=== PATIENT | female | born 1995 | race African-American/Black ===

== ENCOUNTER 2016-12-01 17:50 | Emergency (ER) | payer SELFPAY ==
[~2016-12-01] VITALS: Ht 167.6 cm; Wt 75.0 kg
[2016-12-01 17:52] VITALS: BP 144/89; PULSE 112; RESP 18; TEMP 98; O2SAT 99
--- NOTE | 2016-12-01 18:09 | PD ---
Physical Exam Date Seen by Provider: Dec 01, 2016 Time Seen by Provider: 18:07 Narrative 21- year old female reports that her period is 12 days late. The patient then went to the report center and was told that her test was inconclusive. The patient started bleeding yesterday and presents to have a test. She also reports that she is having abdominal pain. She is awaiting bed placement. Urine HCG and UA ordered in triage. Data Data Last Documented VS Vital Signs Date Time Temp Pulse Resp B/P (MAP) Pulse Ox O2 Delivery O2 Flow Rate FiO2 12/01/16 17:52 98.0 112 18 144/89 (107) 99 MDM Medical Record Reviewed: Yes Supervised Visit with JESS: No Condition: Stable Neeta Siddiqui Dec 01, 2016 18:09
== END 2016-12-01 18:45 | disposition left against medical advice (07) ==
LOC: NED 17:50
DX: R10.9 Unspecified abdominal pain (principal); Z53.21 Procedure and treatment not carried out due to patient leaving prior to being seen by health care provider
CPT/HCPCS: 99281

== ENCOUNTER 2017-04-12 10:56 | Emergency (ER) | payer BC ==
[~2017-04-12] VITALS: Ht 167.6 cm; Wt 75.0 kg
[2017-04-12 10:58] VITALS: BP 127/99; PULSE 79; RESP 18; TEMP 98.7; O2SAT 100
[2017-04-12 11:34] LABS: BACTERIA, URINE OCC /hpf; BILIRUBIN, URINE NEG (NEG); BLOOD, URINE TRACE (NEG); GLUCOSE,URINE NEG (NEG); KETONE, URINE NEG (NEG); MUCUS URINE FEW /lpf (OCC); NITRITE,URINE NEG (NEG); PH, URINE 6.5 (5.0-8.5); SQUAMOUS EPITHELIAL CELL URINE 1 /hpf (0-5); URINE COLOR YELLOW (YELLW/STRAW); URINE LEUKOCYTE ESTERASE SMALL (NEG)
--- NOTE | 2017-04-12 11:36 | PD ---
HPI Chief Complaint: Abdominal Pain Time Seen by Provider: 11:35 Travel History International Travel<30 days: No Contact w/Intl Traveler<30days: No Traveled to known affect area: No History of Present Illness HPI 21-year-old female presents to emergency Department with complaint of intermittent left upper quadrant abdominal pain for the past few weeks. At worst the pain is an 8/10. At best, which she says now, it just feels like a pressure. Denies fevers, vomiting, constipation, diarrhea, dysuria. Currently on menses. No known aggravating or relieving factors. Has taken ibuprofen for symptom management. Denies history of abdominal surgeries. No known allergies. No significant past medical history. No primary care provider. Has no other medical complaints. No other modifying factors or associated signs and symptoms. PFSH Past Medical History ?: Unknown Social History Tobacco Use: No Allergies-Medications (Allergen,Severity, Reaction): Coded Allergies: No Known Allergies (Unverified , 04/12/17) Reported Meds & Prescriptions Reported Meds & Active Scripts Active No Active Prescriptions or Reported Medications Review of Systems Except as stated in HPI: all other systems reviewed are Neg Physical Exam Narrative GENERAL: Well-nourished, well-developed black female patient, in no acute distress; afebrile SKIN: Warm and dry. HEAD: Atraumatic. Normocephalic. EYES: Pupils equal and round. No scleral icterus. No injection or drainage. ENT: Mucosa pink and moist. Airway patent. NECK: Trachea midline. CARDIOVASCULAR: Regular rate and rhythm. No murmur appreciated. RESPIRATORY: No accessory muscle use. Clear to auscultation. Breath sounds equal bilaterally. GASTROINTESTINAL: Abdomen soft, tenderness on palpation to left upper quadrant, nondistended. Hepatic and splenic margins not palpable. Bowel sounds are active 4 quadrants. Nonrigid. No rebound tenderness. No guarding. BACK: No CVA tenderness. MUSCULOSKELETAL: No obvious deformities. No clubbing. No cyanosis. No edema. NEUROLOGICAL: Awake and alert. Oriented 3. No obvious cranial nerve deficits. Motor grossly within normal limits. Normal speech. PSYCHIATRIC: Appropriate mood and affect; insight and judgment normal. Data Data Last Documented VS Vital Signs Date Time Temp Pulse Resp B/P (MAP) Pulse Ox O2 Delivery O2 Flow Rate FiO2 04/12/17 10:58 98.7 79 18 127/99 (108) 100 Room Air Orders Orders Urinalysis - C+S If Indicated (04/12/17 11:05) Ed Urine Pregnancytest Poc (04/12/17 11:05) Complete Blood Count With Diff (04/12/17 11:45) Comprehensive Metabolic Panel (04/12/17 11:45) Lipase (04/12/17 11:45) Iv Access Insert/Monitor (04/12/17 11:45) Sodium Chloride 0.9% Flush (Ns Flush) (04/12/17 11:45) Ketorolac Inj (Toradol Inj) (04/12/17 11:45) Ct Abd/Pel W/O Iv Contrast (04/12/17 11:45) Labs Laboratory Tests Test 04/12/17 11:10 04/12/17 12:04 Urine Color YELLOW Urine Turbidity CLEAR Urine pH 6.5 Urine Specific Ragland 1.018 Urine Protein NEG mg/dL Urine Glucose (UA) NEG mg/dL Urine Ketones NEG mg/dL Urine Occult Blood TRACE Urine Nitrite NEG Urine Bilirubin NEG Urine Urobilinogen LESS THAN 2.0 MG/DL Urine Leukocyte Esterase SMALL Urine RBC 2 /hpf Urine WBC 5 /hpf Urine Squamous Epithelial Cells 1 /hpf Urine Bacteria OCC /hpf Urine Mucus FEW /lpf Microscopic Urinalysis Comment CULT NOT INDICATED White Blood Count 7.1 TH/MM3 Red Blood Count 3.91 MIL/MM3 Hemoglobin 12.5 GM/DL Hematocrit 36.4 % Mean Corpuscular Volume 93.3 FL Mean Corpuscular Hemoglobin 32.1 PG Mean Corpuscular Hemoglobin Concent 34.4 % Red Cell Distribution Width 13.1 % Platelet Count 277 TH/MM3 Mean Platelet Volume 7.9 FL Neutrophils (%) (Auto) 59.9 % Lymphocytes (%) (Auto) 31.9 % Monocytes (%) (Auto) 6.2 % Eosinophils (%) (Auto) 1.4 % Basophils (%) (Auto) 0.6 % Neutrophils # (Auto) 4.2 TH/MM3 Lymphocytes # (Auto) 2.3 TH/MM3 Monocytes # (Auto) 0.4 TH/MM3 Eosinophils # (Auto) 0.1 TH/MM3 Basophils # (Auto) 0.0 TH/MM3 CBC Comment DIFF FINAL Differential Comment Blood Urea Nitrogen 10 MG/DL Creatinine 0.70 MG/DL Random Glucose 88 MG/DL Total Protein 8.6 GM/DL Albumin 4.3 GM/DL Calcium Level 9.0 MG/DL Alkaline Phosphatase 46 U/L Aspartate Amino Transf (AST/SGOT) 16 U/L Alanine Aminotransferase (ALT/SGPT) 16 U/L Total Bilirubin 0.2 MG/DL Sodium Level 139 MEQ/L Potassium Level 3.9 MEQ/L Chloride Level 105 MEQ/L Carbon Dioxide Level 25.3 MEQ/L Anion Gap 9 MEQ/L Estimat Glomerular Filtration Rate 129 ML/MIN Lipase 106 U/L [facility] Medical Decision Making Medical Screen Exam Complete: Yes Emergency Medical Condition: Yes Medical Record Reviewed: Yes Differential Diagnosis Pancreatitis, cholelithiasis, nephrolithiasis, gastritis Narrative Course 21-year-old female with intermittent left upper quadrant abdominal pain for the past few weeks. I discussed the patient with Dr. Lennon, my attending physician and he agrees with my plan of care. IV, CT scan abdomen/pelvis, CBC, CMP, lipase, Toradol ordered. Urinalysis and UPT ordered in triage. 1136: UPT negative. Urinalysis without signs of infection. 1308: CBC, CMP unremarkable. Lipase 106. 1412: CT abdomen/pelvis conclude: Essentially unremarkable study. Dr. Lennon agrees with discharge. Patient to follow up with gastroenterology. Instructed patient to follow up with primary care provider. Patient verbalizes understanding and agreement with treatment plan. Patient is medically cleared and stable for discharge. Discussed reasons to return to the emergency department. Patient agrees with treatment plan. The patients vital signs are stable and the patient is stable for outpatient follow-up and treatment. Patient discharged home, stable and in no acute distress. Diagnosis Primary Impression: Abdominal pain Qualified Codes: R10.12 - Left upper quadrant pain Referrals: Senior Actuarial Analyst Primary Care Physician Patient Instructions: Abdominal Pain (ED), General Instructions Additional Instructions: [id number] antacids as directed and as needed for symptom management Avoid aggravating foods, drinks Follow-up with gastroenterology Follow-up with primary care provider Return to the emergency department immediately for worsening of symptoms Med/Other Pt SpecificInfo: No Change to Meds, No Meds Exist/No RX given Scripts No Active Prescriptions or Reported Meds Disposition: DISCHARGE HOME Condition: Stable Karolyn Arango Apr 12, 2017 11:36
[2017-04-12] MEDS ORDERED: KETOROLAC TROMETHAMINE 30 MG/ML (IVP) VIAL IVP ONE (11:45)
[2017-04-12] MEDS ORDERED: SODIUM CHLORIDE 0.9% FLUSH 10 ML FLUSH IV FLUSH PRN (11:45)
[2017-04-12 12:19] LABS: AUTOMATED NEUTROPHIL # 4.2 TH/MM3 (1.8-7.7); BASOPHIL % 0.6 % (0.0-2.0); EOSINOPHIL # 0.1 TH/MM3 (0-0.4); EOSINOPHIL % 1.4 % (0.0-4.0); HEMATOCRIT 36.4 % (35.0-46.0); HEMOGLOBIN 12.5 GM/DL (11.6-15.3); LYMPH % 31.9 % (9.0-44.0); LYMPHOCYTE # 2.3 TH/MM3 (1.0-4.8); MEAN CELL VOLUME 93.3 FL (80.0-100.0); MEAN CORPUSCULAR HEMOGLOBIN 32.1 PG (27.0-34.0); MEAN CORPUSCULAR HGB CONC 34.4 % (32.0-36.0); MEAN PLATELET VOLUME 7.9 FL (7.0-11.0); MONO % 6.2 % (0.0-8.0); MONOCYTE # 0.4 TH/MM3 (0-0.9); NEUT % 59.9 % (16.0-70.0); PLATELET COUNT 277 TH/MM3 (150-450); RED BLOOD COUNT 3.91 MIL/MM3 (4.00-5.30); RED CELL DISTRIBUTION WIDTH 13.1 % (11.6-17.2); WHITE BLOOD COUNT 7.1 TH/MM3 (4.0-11.0)
[2017-04-12 12:33] LABS: ALBUMIN 4.3 GM/DL (3.4-5.0); ALT (GPT) 16 U/L (9-42); AST (GOT) 16 U/L (16-38); BICARBONATE 25.3 MEQ/L (21.0-32.0); BLOOD UREA NITROGEN 10 MG/DL (7-18); CHLORIDE 105 MEQ/L (98-107); GLOMERULAR FILTRATION RATE 129 ML/MIN (>89); GLUCOSE,RANDOM 88 MG/DL (74-106); LIPASE 106 U/L (73-393); SODIUM (NA) 139 MEQ/L (136-145)
[2017-04-12 12:36] LABS: ALKALINE PHOSPHATASE 46 U/L (45-117); TOTAL BILIRUBIN ADULT 0.2 MG/DL (0.2-1.0); TOTAL PROTEIN 8.6 GM/DL (6.4-8.2)
--- NOTE | 2017-04-12 14:03 | RADRPT ---
EXAM DATE/TIME: 04/12/2017 13:03 [facility] COMPARISON: No previous studies available for comparison. INDICATIONS : Left sided upper quadrant pain for a few weeks. ORAL CONTRAST: No oral contrast ingested. RADIATION DOSE: 7.30 CTDIvol (mGy) MEDICAL HISTORY : None SURGICAL HISTORY : None. ENCOUNTER: Initial ACUITY: 1 day PAIN SCALE: 5/10 LOCATION: Left upper quadrant TECHNIQUE: Volumetric scanning of the abdomen and pelvis was performed. Using automated exposure control and ad justment of the mA and/or kV according to patient size, radiation dose was kept as low as reasonably achievable to obtain optimal diagnostic quality images. DICOM format image data is available electro nically for review and comparison. FINDINGS: CT Abdomen: The liver, spleen, pancreas, kidneys, adrenals are unremarkable. There is no evidence for any appreciable pathological adenopathy, free fluid, or bowel obstruction. There is no evidence for any stones in the kidneys or the course of the ureters on either side. There is no hydronephrosis. CT pelvis: There is no evidence for mass, abscess formation, or any significant adenopathy within the pelvis. Tampon is in place. CONCLUSION: Essentially unremarkable study. Marisol Duggan MD on April 12, 2017 at 13:59 Board Certified Radiologist. This report was verified electronically.
== END 2017-04-12 14:47 | disposition home or self-care (01) ==
LOC: NEPD 10:56
DX: R10.12 Left upper quadrant pain (principal)
CPT/HCPCS: 74176; 80053; 81001; 83690; 84703; 85025; 96374; 99285; J1885